=== PATIENT | female | born 1985 | race Caucasian/White ===

== ENCOUNTER 2019-01-08 16:20 | Emergency (ER) | payer OTHER ==
[2019-01-08 17:02] VITALS: BMI 29.6
[2019-01-08] MEDS ORDERED: SODIUM CHLORIDE 1,000 ML IV STA (17:12)
[2019-01-08] MEDS ORDERED: ACETAMINOPHEN 1000 MG/100 ML VIAL (NON FORMULARY) IVPB ONE (17:12)
[2019-01-08] MEDS ORDERED: ONDANSETRON 4 MG/2 ML VIAL IVPUSH ONE (17:13)
[2019-01-08] MEDS ORDERED: ACETAMINOPHEN INJECTION 100 ML IVPB ONE (17:24)
[2019-01-08] MEDS ORDERED: ONDANSETRON 4 MG/2 ML VIAL ONE (17:24)
[2019-01-08 17:37] LABS: BASO % 0.9 % (0-2.0); HEMATOCRIT 38.6 % (32.4-45.2); HEMOGLOBIN 12.9 GM/dL (10.7-15.3); MCHC 33.4 g/dl (32.0-36.0); MEAN PLT VOLUME 7.9 fl (7.5-11.1); MONO % 5.8 % (3.8-10.2); NEUT % 76.3 % (42.8-82.8); PLATELET COUNT 286 K/MM3 (134-434); RBC 4.15 M/mm3 (3.60-5.2); RDW 12.7 % (11.6-15.6); WHITE BLOOD COUNT 16.2 K/mm3 (4.0-10.0)
--- NOTE | 2019-01-08 17:39 | PDOC ---
Attending Attestation - Resident Resident Name: Teodoro Velasco - ED Attending Attestation I have performed the following: I have examined & evaluated the patient, The case was reviewed & discussed with the resident, I agree w/resident's findings & plan, Exceptions are as noted - HPI HPI: 01/08/19 17:42 33y , LMP 7/8 presents with complaint of syncope - pt was shopping when she started feeling lightehaded, seeing black spots in her vision, feeling woozy, and felt like passing out - she sat down and syncopized for approx 30 seconds. no tongue biting or urinary or bowel incontinence. pt denies any assocpiated cp , sob, palpitations, vag bleeding or discharge, back pain, abd pain, headache. pt notes she has not eaten or drank anything all day. pt does endorse some fequency/urgency wo dysuria. - Physicial Exam PE: 01/08/19 18:45 general: NAD HEENT: dry mmm, eomi NECK: no focal midline tenderness PULM: cta b/l ABD: soft nontender, no rebound/guarding CARD: RRR, No MRG - Medical Decision Making 01/08/19 18:47 blood work reviewed ekg pending awiating US to evaluate for IUP
[2019-01-08 17:42] LABS: EPI CELLS 16.2 /HPF (0-5/HPF); HYALINE CASTS 42 /lpf (0-8); URINE APPEARANCE TURBID; URINE BACTERIA 128.9 /hpf (NEGATIVE); URINE BILIRUBIN NEGATIVE (NEGATIVE); URINE COLOR YELLOW; URINE GLUCOSE (UA) NEGATIVE (NEGATIVE); URINE KETONE TRACE (NEGATIVE); URINE LEUK ESTERASE TRACE (NEGATIVE); URINE NITRITE NEGATIVE (NEGATIVE); URINE PROTEIN 1+ (NEGATIVE); URINE WBC 8 /hpf (0-5)
--- NOTE | 2019-01-08 17:42 | PDOC ---
History of Present Illness - General Chief Complaint: Syncope/Near Syncope Stated Complaint: ABDOMINAL PAIN Time Seen by Provider: 01/08/19 17:10 History Source: Patient Exam Limitations: No Limitations - History of Present Illness Initial Comments: Awilda Breen is a 33 yo F who presents to the [facility] er after she syncopized 2 hours ago while she was shopping at [employer]. The patient is from [facility] and is here visiting a friend. She states that she has felt nauseous all day and hasn't been able to eat or drink much. She states that while she was walking down the aisle at [employer] she started feeling woozy, felt lightheaded, starting seeing some black dots, and knew she was going to pass out bc this has happened to her before so she sat down on the floor, lay down, and states she lost consciousness for around 30 seconds and then woke up and was her normal self at baseline. She was not confused afterwards she just felt hungry and thirsty so she came to the ER to be evaluated. She denies any current pain or other complaints here in the ER aside from her being hungry. Patient states she has had an US documenting her inside her uterus where she lives. - Although the triage summary states the patient has abdominal pain, when I asked at bedside she stated she has no abdominal pain and had no abdominal pain at any point today. - Patient endorses frequency and urgency but denies dysuria or hematuria. Denies chest pain, SOB, difficulty breathing, abdominal pain, vomiting, dysuria , hematuria. LMP: October 04 OB doc: [facility]. [facility] PSH: None reported Social Hx: Denies smoking, drinking, or other substance usage. Allergies: NKA, NKDA Past History - Past Medical History Allergies/Adverse Reactions: Allergies Allergy/AdvReac Type Severity Reaction Status Date / Time No Known Allergies Allergy Verified 01/08/19 17:02 COPD: No - Psycho Social/Smoking Cessation Hx Smoking History: Unknown if ever smoked Have you smoked in the past 12 months: No Information on smoking cessation initiated: No Hx Alcohol Use: No Drug/Substance Use Hx: No Review of Systems - Review of Systems Able to Perform ROS?: Yes Comments:: CONSTITUTIONAL: Absent: fever, no chills, no fatigue EYES: Present: visual changes ENT: Absent: ear pain, no sore throat CARDIOVASCULAR: Absent: chest pain, no palpitations RESPIRATORY: Absent: cough, no SOB GI: Present: Nausea Absent: abdominal pain, no vomiting, no constipation, no diarrhea GENITOURINARY: Present: Frequency Absent: dysuria, no hematuria MUSKULOSKELETAL: Absent: back pain, no arthralgia, no myalgia SKIN: Absent: rash NEURO: Absent: headache *Physical Exam - Vital Signs Last Vital Signs Temp Pulse Resp BP Pulse Ox 98.6 F 90 16 90/58 L 100 01/08/19 16:45 01/08/19 16:45 01/08/19 16:45 01/08/19 16:45 01/08/19 16:45 - Physical Exam Comments: GENERAL: Well-appearing, well-nourished. No apparent distress. HEENT: Normocephalic, atraumatic. PERRL, EOM intact. CARDIOVASCULAR: Normal S1, S2. Regular rate and rhythm. PULMONARY: No evidence of respiratory distress. Lungs clear to auscultation bilaterally. No wheezing, rales or rhonchi. ABDOMEN: Gravid uterus. Soft, non-distended, non-tender. EXTREMITIES: Normal ROM in all four extremities. No gross deformities. SKIN: Warm, dry. No rash NEUROLOGICAL: No focal neurological deficits. ED Treatment Course - LABORATORY CBC & Chemistry Diagram: 01/08/19 17:27 01/08/19 17:27 - RADIOLOGY Radiology Studies Ordered: Category Date Time Status TRANSVAGINAL US PREG [US] Stat Ultrasound 01/08/19 17:13 Ordered Medical Decision Making - Medical Decision Making Awilda Breen is a 33 yo F who presents to the [facility] er after she syncopized 2 hours ago while she was shopping at [employer]. The patient is from [facility] and is here visiting a friend. She states that she has felt nauseous all day and hasn't been able to eat or drink much. She states that while she was walking down the aisle at [employer] she started feeling woozy, felt lightheaded, starting seeing some black dots, and knew she was going to pass out bc this has happened to her before so she sat down on the floor, lay down, and states she lost consciousness for around 30 seconds and then woke up and was her normal self at baseline. She was not confused afterwards she just felt hungry and thirsty so she came to the ER to be evaluated. She denies any current pain or other complaints here in the ER aside from her being hungry. Patient states she has had an US documenting her inside her uterus where she lives. - Although the triage summary states the patient has abdominal pain, when I asked at bedside she stated she has no abdominal pain and had no abdominal pain at any point today. - Patient endorses frequency and urgency but denies dysuria or hematuria. Denies chest pain, SOB, difficulty breathing, abdominal pain, vomiting, dysuria , hematuria. LMP: October 04 Vital Signs Temp Pulse Resp BP Pulse Ox 98.6 F 90 16 90/58 L 100 01/08/19 16:45 01/08/19 16:45 01/08/19 16:45 01/08/19 16:45 01/08/19 16:45 - Normotensive at bedside. DDx IBNLT: - IUP vs ectopic, syncope from dehydration vs vasovagal, electrolyte/metabolic disturbance, hyperemesis Plan: Labs, EKG, Urine, TVUS, IV hydration, anti-emetics, re-assess. Labs: Leukocytosis EKG: NS rate of 76, narrow complexes, normal axis, no hypertrophy, no ST elevations or depressions, TWI in lead III, QTc 436, no delta waves Impression: Normal EKG Urine: Unremarkable - Call back placed in [employer] to call up patient if UC grows anything TVUS: FINDINGS: There is a single live intrauterine gestation at approximately 12 weeks and 0 days, based on crown-rump length. heart rate is noted at 161 bpm. Cervix appears closed. No large ovarian cysts. Duplex Ultrasound: Appropriate arterial and/or venous flow are noted in both ovaries, making torsion unlikely at this time. No significant free pelvic fluid. Re-assessment: Patient feels well and requests to be discharged, has been asymptomatic since ED presentation. Disposition: Home with OB fu Discharge - Discharge Information Problems reviewed: Yes Clinical Impression/Diagnosis: Syncopal episodes Condition: Improved Disposition: HOME - Admission No - Follow up/Referral Referrals: [facility] [place] [Provider Group] Markel Grove MD [Staff Physician] - - Patient Discharge Instructions Patient Printed Discharge Instructions: DI for Syncope in Adults (Fainting) Additional Instructions: You came into the ER after you passed out. We believe you were dehydrated which caused the syncopal episode. Please make sure to follow up with your regular doctor in the next 3 to 5 days to make sure you are well and being taken care of. Come back to the ER immediately if you feel like you are going to pass out again or have any chest pain, shortness of breath, or any other new or worsening concerns. Thank you for coming to the [facility] ER. We hope you feel better soon! Print Language: URUGUAYAN - Post Discharge Activity
[2019-01-08 17:50] LABS: INR 0.96 (0.83-1.09); PROTHROMBIN TIME (PATIENT) 11.3 SEC (9.7-13.0)
[2019-01-08 17:53] LABS: ACTIVATED PTT 21.5 SECONDS (25.2-36.5)
[2019-01-08 18:02] LABS: URINE RBC 0-4 /hpf (0-4)
[2019-01-08 18:03] LABS: URINE CRYSTALS POSITIVE /hpf
[2019-01-08 18:11] LABS: ALBUMIN 3.1 g/dl (3.4-5.0); BILIRUBIN,TOTAL 0.1 mg/dL (0.2-1); BLOOD UREA NITROGEN 6.9 mg/dL (7-18); CREATININE 0.7 mg/dL (0.55-1.3); POTASSIUM 4.2 mmol/L (3.5-5.1); TOT PROT 6.3 g/dl (6.4-8.2)
[2019-01-08 19:38] VITALS: BP 102/65; PULSE 85; TEMP 98.1
--- NOTE | 2019-01-09 21:59 | EKG ---
Test Reason : Blood Pressure : / mmHG Vent. Rate : 076 BPM Atrial Rate : 076 BPM P-R Int : 154 ms QRS Dur : 078 ms QT Int : 388 ms P-R-T Axes : 021 026 017 degrees QTc Int : 436 ms NORMAL SINUS RHYTHM NORMAL ECG NO PREVIOUS ECGS AVAILABLE Confirmed by Nga Lafleur ([id number]) on 01/09/2019 9:59:05 PM Referred By: Confirmed By:Nga Lafleur
== END 2019-01-08 20:04 | disposition home or self-care (01) ==
LOC: JER 16:20
PROC: 3E033GC Introduction of Other Therapeutic Substance into Peripheral Vein, Percutaneous Approach (ICD-10-PCS; principal; 2019-01-08)
PROC: 3E033NZ Introduction of Analgesics, Hypnotics, Sedatives into Peripheral Vein, Percutaneous Approach (ICD-10-PCS; 2019-01-08)
DX: O26.891 Other specified pregnancy related conditions, first trimester (principal); R55 Syncope and collapse; Z3A.12 12 weeks gestation of pregnancy
CPT/HCPCS: 36415; 76817-TC; 80053; 81003; 84702; 84703; 85025; 85610; 85730; 86850; 86900; 86901; 87086; 93005; 93010; 96374; 96375; 99285-25; J0131; J7030